=== PATIENT | male | born 1995 | race Hispanic/Latino ===

== ENCOUNTER 2019-10-10 02:25 | Inpatient (IN) | payer OTHER ==
[~2019-10-10] VITALS: Ht 167.6 cm; Wt 74.9 kg
[2019-10-10 03:45] LABS: HEMATOCRIT 39.8 % (42.0-52.0); HEMOGLOBIN 13.6 g/dl (13.5-17.5); MEAN CORPUSCULAR HEMOGLOBIN 28.4 pg (27.0-33.0); MEAN CORPUSCULAR HGB CONC 34.2 g/dl (32.0-36.5); MEAN CORPUSCULAR VOLUME 83.1 fl (80.0-96.0); PLATELET COUNT, AUTOMATED 183 10^3/uL (150-450); RED BLOOD COUNT 4.79 10^6/uL (4.30-6.10); WHITE BLOOD COUNT 5.8 10^3/uL (4.0-10.0)
[2019-10-10 03:47] LABS: AMPHETAMINES LEVEL URINE NEGATIVE (NEGATIVE); BARBITURATES URINE NEGATIVE (NEGATIVE); BENZODIAZEPINES URINE NEGATIVE (NEGATIVE); CANNABINOIDS URINE NEGATIVE (NEGATIVE); COCAINE METABOLITE URINE NEGATIVE (NEGATIVE); METHADONE URINE NEGATIVE (NEGATIVE); OPIATES URINE NEGATIVE (NEGATIVE); PHENCYCLIDINE URINE NEGATIVE (NEGATIVE)
[2019-10-10 04:02] LABS: ACETAMINOPHEN LEVEL < 2.0 UG/ML (10.0-30.0); ALBUMIN 3.6 GM/DL (3.2-5.2); ALT/SGPT 37 U/L (12-78); BILIRUBIN,DIRECT 0.1 MG/DL (0.0-0.2); BILIRUBIN,TOTAL 0.4 MG/DL (0.2-1.0); BLOOD UREA NITROGEN 19 MG/DL (7-18); CALCIUM LEVEL 8.6 MG/DL (8.5-10.1); CARBON DIOXIDE LEVEL 29 MEQ/L (21-32); CHLORIDE LEVEL 106 MEQ/L (98-107); CREATININE FOR GFR 0.91 MG/DL (0.70-1.30); ETHYL ALCOHOL (ETHANOL) < 0.003 % (0.000-0.010); GLOMERULAR FILTRATION RATE > 60.0 (>60); GLUCOSE, FASTING 89 MG/DL (70-100); POTASSIUM SERUM 3.9 MEQ/L (3.5-5.1); SALICYLATE LEVEL < 1.7 MG/DL (5.0-30.0); SODIUM LEVEL 138 MEQ/L (136-145); TOTAL PROTEIN 7.1 GM/DL (6.4-8.2)
[2019-10-10] MEDS ORDERED: ACETAMINOPHEN TAB 650MG DOSE (2X325MG) PO PRN (04:30)
[2019-10-10] MEDS ORDERED: MOM 30ML SUSPENSION UDC PO PRN (04:30)
[2019-10-10] MEDS ORDERED: MAALOX 30 ML SUSP *UDC PO PRN (04:30)
[2019-10-10] MEDS ORDERED: traZODone 50 MG TAB PO PRN (04:30)
[2019-10-10 05:00] VITALS: BP 124/73
--- NOTE | 2019-10-10 11:04 | HPEPDOC ---
General Date of Admission October 10, 2019 at 04:22 Date of Service: October 10, 2019 Chief Complaint The patient is a 23-year-old male admitted with a reason for visit of Unspecified Depressive Disorder. 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 I am seeing he patient for medical history and physical. Patient denied any medical complaints at this time. Home Medications No Active Prescriptions or Reported Meds Allergies Coded Allergies: No Known Allergies (Unverified , 10/10/19) Past Medical History Medical History none Surgical History none Family History Significant Family History: Cancer (breast cancer maternal aunt) Social History * Smoker: Denies Alcohol: Denies Drugs: denies A-FIB/CHADSVASC A-FIB History Current/History of A-Fib/PAF?: No Review of Systems Constitutional: Denies: Chills, Fever, Night Sweats Eyes: Denies: Pain, Vision change ENT: Denies: Head Aches, Ear Pain, Dysphagia Skin: Denies: Rash, Lesions, Breakdown Pulmonary: Denies: Dyspnea, Cough Cardiovascular: Denies: Chest Pain, Palpitations, Orthopnea, Paroxysmal Noc. Dyspnea, Lt Headedness Gastrointestinal: Denies: Nausea, Vomiting, Abdominal Pain, Diarrhea Genitourinary: Denies: Dysuria, Frequency, Incontinence, Retention Hematologic: Denies: Bruising, Bleeding Excessively Musculoskeletal: Denies: Neck Pain, Back Pain, Joint Pain, Muscle Pain, Spasms Neurological: Denies: Weakness, Numbness, Change in speech, Confusion Psych: Reports: Mood Normal, Depression; Denies: Memory Issues Physical Examination General Exam: Positive: Alert, No Acute Distress Eye Exam: Positive: PERRLA, Conjunctiva & lids normal, EOMI; Negative: Sclera icteric ENT Exam: Positive: Atraumatic, Mucous membr. moist/pink, Pharynx Normal Neck Exam: Positive: Supple; Negative: JVD, thyromegaly Chest Exam: Positive: Clear to auscultation, Normal air movement Heart Exam: Positive: Rate Normal, Regular Rhythm, Normal S1, Normal S2; Negative: Murmurs, Rubs Telemetry: Positive: No significant arrhythmia Abdomen Exam: Positive: Normal bowel sounds, Soft; Negative: Tenderness, Hepatospenomegaly Extremity Exam: Positive: Normal pulses; Negative: Clubbing, Cyanosis, Edema Skin Exam: Positive: Nl turgor and temperature; Negative: Breakdown, Lesion Neuro Exam: Positive: Normal Gait, Normal Speech, Cranial Nerves 3-12 NL, Reflexes 2+ Psych Exam: Positive: Mental status NL, Mood NL, Oriented x 3 Vital Signs Vital Signs Date Time Temp Pulse Resp B/P (MAP) Pulse Ox O2 Delivery O2 Flow Rate FiO2 10/10/19 05:00 96.8 56 16 124/73 (90) Room Air 10/10/19 02:25 100 Laboratory Data Labs 24H Laboratory Tests 2 10/10/19 03:10: Nucleated Red Blood Cells % (auto) 0.0, Anion Gap 3L, Glomerular Filtration Rate > 60.0, Calcium Level 8.6, Total Bilirubin 0.4, Direct Bilirubin 0.1, Aspartate Amino Transf (AST/SGOT) 20, Alanine Aminotransferase (ALT/SGPT) 37, Alkaline Phosphatase 66, Total Protein 7.1, Albumin 3.6, Albumin/Globulin Ratio 1.0, Thyroid Stimulating Hormone (TSH) 2.300, Salicylates Level < 1.7L, Urine Opiates Screen NEGATIVE, Urine Methadone Screen NEGATIVE, Acetaminophen Level < 2.0L, Urine Barbiturates Screen NEGATIVE, Urine Phencyclidine Screen NEGATIVE, Urine Amphetamines Screen NEGATIVE, Urine Benzodiazepines Screen NEGATIVE, Urine Cocaine Metabolite Screen NEGATIVE, Urine Cannabinoids Screen NEGATIVE, Ethyl Alcohol Level < 0.003 CBC/BMP Laboratory Tests 10/10/19 03:10 Assessment/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 I am seeing he patient for medical history and physical. Patient denied any medical complaints at this time. Psych as per [facility] No acitive medical issues will sign off. Plan / VTE VTE Prophylaxis Ordered?: No (freely ambulatory) NAVID PARK MD October 10, 2019 11:04
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
[2019-10-10] MEDS: ESCITALOPRAM OXALATE 10 MG TAB (LEXAPRO) PO SCH (16:26)
[2019-10-10 16:36] VITALS: BP 143/74
[2019-10-11 06:17] VITALS: BP 122/60
[2019-10-11] MEDS: ESCITALOPRAM OXALATE 10 MG TAB (LEXAPRO) PO SCH (08:24)
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
[2019-10-11 18:00] VITALS: BP 126/75
[2019-10-12 05:52] VITALS: BP 123/56
[2019-10-12] MEDS: ESCITALOPRAM OXALATE 10 MG TAB (LEXAPRO) PO SCH (08:56)
--- NOTE | 2019-10-12 09:23 | MHIPNPDOC ---
[facility] Progress Note Progress Note 23-year-old man admitted for depression, seen in follow-up. He reports he is doing well and is interested in going home tomorrow. He reports he is doing well and nursing staff have not noticed any particular problems. He is well behaved over the evening and attending groups. Reports his depressed mood, loss of interest and fatigue initially noticed on his presentation has resolved. He denies any symptoms of anxiety. Vital Signs Vital Signs Date Time Temp Pulse Resp B/P (MAP) Pulse Ox O2 Delivery O2 Flow Rate FiO2 10/12/19 05:52 98.4 58 16 123/56 (78) 10/11/19 06:17 99 Room Air Vital Signs Date Time Temp Pulse Resp B/P (MAP) Pulse Ox O2 Delivery O2 Flow Rate FiO2 10/12/19 05:52 98.4 58 16 123/56 (78) 10/11/19 06:17 99 Room Air Current Medications Current Medications Medications (Trade) Dose Ordered Sig/Pili Route PRN Reason Start Time Stop Time Status Last Admin Dose Admin Acetaminophen (Tylenol Tab) 650 mg Q6HP PRN PO HEADACHE or DISCOMFORT 10/10/19 04:30 Al Hydrox/Mg Hydrox/Simethicone (Mylanta) 30 ml Q4HP PRN PO HEARTBURN/INDIGESTION 10/10/19 04:30 Escitalopram Oxalate (Lexapro) 10 mg DAILY PO 10/10/19 09:00 10/12/19 08:56 Home Med (Med Rec Complete!) ASDIRECTED XX 10/10/19 05:00 10/10/19 04:52 DC Magnesium Hydroxide (Milk Of Magnesia) 30 ml DAILYPRN PRN PO CONSTIPATION 10/10/19 04:30 Trazodone HCl (Desyrel) 50 mg QHSP PRN PO INSOMNIA 10/10/19 04:30 Allergies Coded Allergies: No Known Allergies (Unverified , 10/10/19) Review of Systems General: Denies: ROS Unobtainable, Chills, Night Sweats, Fatigue, Malaise, Normal Appetite, Other Symptoms Pulmonary: Denies: Dyspnea, Cough, Pleuritic Chest Pain, Other Symptoms Cardiovascular: Denies: Chest Pain, Palpitations, Orthopnea, Paroxysmal Noc. Dyspnea, Edema, Lt Headedness, Other Symptoms Gastrointestinal: Denies: Nausea, Vomiting, Abdominal Pain, Diarrhea, Constipation, Melena, Hematochezia, Other Symptoms Genitourinary: Denies: Dysuria, Frequency, Incontinence, Hematuria, Retention, Other Symptoms Musculoskeletal: Denies: Neck Pain, Back Pain, Shoulder Pain, Arm Pain, Hand Pain, Leg Pain, Foot Pain, Joint Pain, Muscle Pain, Spasms, Other Symptoms Neurological: Denies: Weakness, Numbness, Incoordination, Change in speech, Confusion, Seizures, Other Symptoms Mental Status Examination General Appearance: well groomed Build: average Demeanor: average Eye Contact: average Activity: average Behavior: cooperative Speech: clear Mood: euthymic Affect: full Thought Process: logical/linear Thought Content (Delusions): none reported Thought Content (Other): none reported Thought Content (Aggressive): none reported Perception (Hallucinations): none reported Perception (Other): none reported Cognition (Impairment of): none reported Cognition(Intelligence Est.): average Oriented: Awake Insight: good Judgment: Good Psychosis: Associations Assessment 23-year-old man with likely combination of PTSD and depression presents for follow-up, he is doing better and will likely be triaged for discharge tomorrow as he does not meet involuntary criteria, however we will need to coordinate with [facility]. Problem List Problems: (1) Major depressive disorder with single episode, in full remission Status: Acute Response to Treatment: Improving Discussed With: Nurse, Patient Problem Specific Plan: Monitor Clinically Problem Text: Change lexapro to 10mg nightly to reduce sedation (2) PTSD (post-traumatic stress disorder) Status: Chronic Response to Treatment: Improving Discussed With: Nurse, Patient Problem Text: as above (3) Suicidal ideation Status: Resolved Medications No Active Prescriptions or Reported Benjas PHILIP GONZALEZ DO October 12, 2019 09:23
[2019-10-12 18:00] VITALS: BP 145/68
[2019-10-12] MEDS ORDERED: ESCITALOPRAM OXALATE 10 MG TAB (LEXAPRO) PO SCH (21:00)
[2019-10-13 06:11] VITALS: BP 110/58
--- NOTE | 2019-10-13 09:05 | MHDSPDOC ---
[facility] Discharge Summary Discharge Summary DATE OF ADMISSION: October 10, 2019 at 04:22 DATE OF DISCHARGE: October 13, 2019 at 13:05 DISCHARGE DIAGNOSES: 1. Major depressive disorder, moderate. 2. PTSD, chronic. 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 CONSULTANTS INVOLVED: hospitalist screening TREATMENT AND PROGRESS ON THE UNIT : the patient was treated on the inpatient mental health unit and resumed on previously tried Lexapro. He was observed for several days where he results quite quickly without any major effort, casting some doubt on the original assessment of major depressive disorder. However, he did well and had no major behavioral problems and requested discharge.. DISCHARGE ASSESSMENT: 23-year-old man with fairly transient depression presents after suicidal thoughts. The patient at the time of discharge did not meet criteria for involuntary admission/extension due to having a normal mental status exam, fair insight into the situation, They are engaged in the discharge process, as well as being friendly and amenable in behavioral control and havent been engaging in any observed concerning behavior or ideation recently. They decline voluntary extension/admission at this time and must be discharged in good frank, as Im unable to make a case for holding the patient against their will. They may have historical risk factors of admissions and other interactions with psychiatry however, those are not modifiable from a clinical perspective. The patient will need to be discharged in good frank. MENTAL STATUS EXAMINATION ON DISCHARGE: General: Well dressed with good hygiene Speech: Spontaneous and fluid Thought processes: Linear and logical Thought content: Future orientated Abstract reasoning, and computation: Intact Description of associations: Intact Description of abnormal or psychotic thoughts:Denies any suicidal or homicidal ideation. Denies any auditory or visual hallucinations. Does not appear to be responding to internal stimuli. Does not appear to be endorsing any bizarre or paranoid ideation. Judgment: fair Insight: fair Orientation: Alert and orientated 3 Recent and remote memory: Intact Attention span and concentration: Intact Fund of knowledge: Adequate Mood: "okay" Affect: Euthymic with a full range PLAN/FOLLOWUP ARRANGEMENTS: [facility]. The amount of time spent in the coordination of care for this patient was approximately 45 minutes. Vital Signs/I&Os Vital Signs Date Time Temp Pulse Resp B/P (MAP) Pulse Ox O2 Delivery O2 Flow Rate FiO2 10/13/19 06:11 98.1 61 12 110/58 (75) 10/11/19 06:17 99 Room Air Medications Scheduled Escitalopram Oxalate (Escitalopram Oxalate) 10 Mg Tablet, 10 MG PO QHS for mood for 7 Days, #7 Allergies Coded Allergies: No Known Allergies (Unverified , 10/10/19) PHILIP GONZALEZ DO October 13, 2019 09:05
[2019-10-13] MEDS ORDERED: ESCI10TA2 PO (10:12)
== END 2019-10-13 13:05 | disposition home or self-care (01) | DRG 885 ==
LOC: M ED 02:25 → M ED INP 04:22 → M PSY 05:04
PROVIDERS: ADMIT Psychiatry & Neurology Psychiatry; ATTEND Psychiatry & Neurology Addiction Medicine
DX: F32.1 Major depressive disorder, single episode, moderate (principal); R45.851 Suicidal ideations; F43.12 Post-traumatic stress disorder, chronic